=== PATIENT | female | born 1995 | race Caucasian/White ===

== ENCOUNTER → 2020-04-22 09:31 | Outpatient (CLI) | payer OTHER | END | disposition home or self-care (01) | LOC: LAB 09:31 | DX: U07.1 COVID-19 (principal) ==

== ENCOUNTER → 2020-06-12 08:00 | Outpatient (CLI) | payer OTHER | END | disposition home or self-care (01) | LOC: LAB 04-27 14:16 | PROVIDERS: ATTEND Emergency Medicine Pediatric Emergency Medicine | DX: Z03.818 Encounter for observation for suspected exposure to other biological agents ruled out (principal) ==

== ENCOUNTER → 2020-06-27 | Outpatient (CLI) | payer OTHER | END | disposition home or self-care (01) | LOC: MRI 16:10 | DX: M25.572 Pain in left ankle and joints of left foot (principal) | CPT/HCPCS: 73718 ==

== ENCOUNTER → 2020-06-29 08:48 | Outpatient (CLI) | payer OTHER | END | disposition home or self-care (01) | LOC: LAB 08:48 | PROVIDERS: ATTEND Emergency Medicine Pediatric Emergency Medicine | DX: Z03.818 Encounter for observation for suspected exposure to other biological agents ruled out (principal) ==